=== PATIENT | male | born 1975 | race African-American/Black ===

== ENCOUNTER 2016-08-26 09:08 | Emergency (ER) | payer OTHER ==
--- NOTE | 2016-08-26 10:26 | ER Document Report ---
HPI - HPI Patient complains to provider of: leg pain Pain Level: Denies Context: Patient is a 41-year-old male presents emergency Department complaining of leg pain at night for the past 2 months. Patient states that typically at night when he is going to bed and lying down his legs feel like theyre tingling when he has to get up and move. Patient denies any history of diabetes, peripheral neuropathy, lower extremity injury previously. Patient denies any history of restless leg syndrome. Denies any history of mental health problems. He has not followed up with his primary care provider about this. He denies any pain currently. 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 REVIEW OF SYSTEMS: CONSTITUTIONAL : Denies fever, chills, or sweats. Denies recent illness. EENT: Denies eye, ear, throat, or mouth pain or symptoms. Denies nasal or sinus congestion or discharge. Denies throat, tongue, or mouth swelling or difficulty swallowing. CARDIOVASCULAR: Denies chest pain. Denies palpitations or racing or irregular heart beat. Denies ankle edema. RESPIRATORY: Denies cough, cold, or chest congestion. Denies shortness of breath, difficulty breathing, or wheezing. GASTROINTESTINAL: Denies abdominal pain or distention. Denies nausea, vomiting , or diarrhea. Denies blood in vomitus, stools, or per rectum. Denies black, tarry stools. Denies constipation. GENITOURINARY: Denies difficulty urinating, painful urination, burning, frequency, blood in urine, or discharge. FEMALE GENITOURINARY: Denies vaginal bleeding, heavy or abnormal periods, irregular periods. Denies vaginal discharge or odor. MUSCULOSKELETAL: Denies any muscle spasms, difficulty walking, extremity pain SKIN: Denies rash, lesions or sores. HEMATOLOGIC : Denies easy bruising or bleeding. LYMPHATIC: Denies swollen, enlarged glands. NEUROLOGICAL: Denies confusion or altered mental status. Denies passing out or loss of consciousness. Denies dizziness or lightheadedness. Denies headache. Denies weakness or paralysis or loss of use of either side. Denies problems with gait or speech. Denies sensory loss, numbness, or tingling. Denies seizures. PSYCHIATRIC: Denies anxiety or stress. Denies depression, suicidal ideation, or homicidal ideation. ALL OTHER SYSTEMS REVIEWED AND NEGATIVE. Dictation was performed using [employer] voice recognition software - CARDIOVASCULAR Cardiovascular: DENIES: Chest pain - DERM Skin Color: Normal Past Medical History - Social History Smoking Status: Never Smoker Chew tobacco use (# tins/day): No Frequency of alcohol use: None Drug Abuse: None Family History: Reviewed & Not Pertinent Patient has suicidal ideation: No Patient has homicidal ideation: No Renal/ Medical History: Denies: Hx Peritoneal Dialysis Past Surgical History: Reports: Hx Cardiac Surgery - as a child Vertical Provider Document - CONSTITUTIONAL Agree With Documented VS: No - pulse ox is 96% Exam Limitations: No Limitations General Appearance: WD/WN, No Apparent Distress - INFECTION CONTROL TRAVEL OUTSIDE OF THE [place] IN LAST 30 DAYS: No - RESPIRATORY O2 Sat by Pulse Oximetry: 90 - CARDIOVASCULAR Pulses: Normal: Popliteal, Dorsalis pedis Notes: Capillary refill less than 2 seconds in bilateral lower extremity digits. - MUSCULOSKELETAL/EXTREMETIES Musculoskeletal/Extremeties: MAEW, FROM, Non-Tender, No Edema. negative: Eccymosis Notes: Strength 5 out of 5 in bilateral lower extremities. Negative Homans sign - NEURO Level of Consciousness: Awake, Alert, Appropriate Motor/Sensory: No Motor Deficit, No Sensory Deficit - DERM Integumentary: Warm, Dry, No Rash Course - Re-evaluation Re-evalutation: 08/26/16 10:43 Patient is a 41-year-old male presents with complaint of chronic lower extremity pain only at night. Physical exam findings are not consistent with concerns for DVT, lower extremity edema. Physical exams supportive of neurovascular intact lower extremities. No condition for additional imaging or testing. Discharge home with instruction to follow up with primary care. - Vital Signs Vital signs: Temp Pulse Resp BP Pulse Ox 98.6 F 89 20 143/90 H 90 L 08/26/16 09:22 08/26/16 09:22 08/26/16 09:22 08/26/16 09:22 08/26/16 09:22 Discharge - Discharge Clinical Impression: Leg pain Condition: Good Disposition: HOME, SELF-CARE Instructions: Leg Pain Nonspecific ([facility]) Forms: Elevated Blood Pressure, Return to Work Referrals: RODY SCHAFER MD [ACTIVE STAFF] - Follow up in 1 month
[2016-08-26 10:45] VITALS: BP 132/96
== END 2016-08-26 10:30 | disposition home or self-care (01) ==
LOC: ER 09:08
DX: G89.29 Other chronic pain (principal); M79.606 Pain in leg, unspecified; R20.2 Paresthesia of skin
CPT/HCPCS: 99283